=== PATIENT | female | born 1965 | race Asian ===

== ENCOUNTER 2022-05-16 08:11 | Emergency (ER) | payer OTHER ==
[~2022-05-16] VITALS: Ht 167.6 cm; Wt 62.7 kg
[2022-05-16] MEDS ORDERED: LOSA-382 PO ×2 (08:29→10:54)
[2022-05-16] MEDS ORDERED: AMLO2.5T96 PO (08:29)
[2022-05-16] MEDS ORDERED: ONDANSETRON HCL 4 MG TABLET PO ONE (08:45)
[2022-05-16] MEDS ORDERED: ACETAMINOPHEN/CODEINE 300-30 MG TABLET PO ONE (08:45)
[2022-05-16 09:06] LABS: BASOPHILS % (AUTO) 0.4 % (0.0-2.0); EOSINOPHILS % (AUTO) 2.9 % (1.0-6.0); HEMATOCRIT 41.5 % (36-46); HEMOGLOBIN 13.9 g/dL (12.0-16.0); LYMPHOCYTES # (AUTO) 1.2 K/uL (1.0-4.8); LYMPHOCYTES % (AUTO) 12.6 % (22.0-44.0); MEAN CORPUSCULAR HEMOGLOBIN 27.5 pg (26.0-34.0); MEAN CORPUSCULAR HGB CONC 33.4 G/dL (31.0-37.0); MEAN CORPUSCULAR VOLUME 82 fL (80-100); MONOCYTES # (AUTO) 0.6 K/uL (0.1-1.0); MONOCYTES % (AUTO) 6.5 % (2.0-9.0); NEUTROPHILS # (AUTO) 7.5 K/uL (1.8-7.7); NEUTROPHILS % (AUTO) 77.6 % (40.0-70.0); PLATELET COUNT (AUTO) 283 K/uL (150-450); RED BLOOD CELL COUNT(AUTO) 5.04 MIL/uL (4.00-5.20); RED CELL DISTRIBUTION WIDTH 12.8 % (11.5-14.5)
[2022-05-16 09:10] LABS: COVID AG,FIA SOURCE NASAL SWAB
[2022-05-16 09:21] LABS: CHLORIDE 100 mmol/L (98-107); POTASSIUM 3.8 mmol/L (3.5-5.1); SODIUM SERUM 135 mmol/L (136-145)
[2022-05-16 09:22] LABS: ANION GAP 7 mmol/L (8-16); CARBON DIOXIDE 28 mmol/L (22-29); CREATININE 0.78 mg/dL (0.60-1.30); GLUCOSE,RANDOM 142 mg/dL (70-110); UREA NITROGEN, BLOOD 10 mg/dL (7-18)
[2022-05-16 09:23] LABS: GLOMERULAR FILTR. RATE CALC > 60 mL/min (>60)
[2022-05-16 09:28] LABS: ALANINE AMINOTRANSFERASE 42 U/L (12-78); ALBUMIN 3.8 g/dL (3.4-5.0); ALKALINE PHOSPHATASE 97 U/L (46-116); ASPARTATE AMINOTRANSFERASE 37 U/L (15-37); BILIRUBIN,TOTAL 0.4 mg/dL (0.1-1.0); LIPASE 183 U/L (73-393); TOTAL PROTEIN, SERUM 8.6 g/dL (6.4-8.2)
[2022-05-16 09:29] LABS: LACTIC ACID 1.4 mmol/L (0.4-2.0)
[2022-05-16 09:31] LABS: B-TYPE NATRIURETIC PEPTIDE < 5 pg/mL (0-100)
[2022-05-16 09:36] LABS: APPEARANCE,URINE CLEAR (CLEAR); BILIRUBIN,URINE NEGATIVE (NEGATIVE); GLUCOSE, URINE (UA) NEGATIVE (NEGATIVE); KETONES,URINE NEGATIVE (NEGATIVE); LEUKOCYTE ESTERASE ,URINE NEGATIVE (NEGATIVE); NITRATE,URINE NEGATIVE (NEGATIVE); OCCULT BLOOD,URINE NEGATIVE (NEGATIVE); PROTEIN,URINE NEGATIVE (NEGATIVE); SPECIFIC GRAVITIY, URINE 1.006 (1.003-1.030); UROBILINOGEN,URINE <=1.0 mg/dL (<=1.0)
[2022-05-16 09:51] LABS: BACTERIA,URINE None Seen /HPF (None Seen); RBC,URINE None Seen /HPF (0-2); SQUAMOUS EPITHELIAL CELL,UR None Seen /LPF (None Seen); WBC,URINE None Seen /HPF (0-5)
[2022-05-16 10:37] VITALS: BP 129/72
[2022-05-16] MEDS ORDERED: OMEP20 PO (10:54)
[2022-05-16] MEDS ORDERED: ACET-2080 PO (10:54)
[2022-05-16] MEDS ORDERED: HYDR59LO7 TP (10:54)
[2022-05-16] MEDS ORDERED: TRIA15CR49 TP (10:55)
== END 2022-05-16 11:14 | disposition home or self-care (01) ==
LOC: EMS 08:18
DX: R53.1 Weakness (principal); L20.9 Atopic dermatitis, unspecified; L30.9 Dermatitis, unspecified; I10 Essential (primary) hypertension; Z20.822 Contact with and (suspected) exposure to COVID-19
CPT/HCPCS: 99285; 71045; 87426; 80053; 81001; 83605; 83690; 83880; 84484; 85025; 36415; 93005; Q0162

== ENCOUNTER 2022-07-01 11:53 | Emergency (ER) | payer OTHER ==
[~2022-07-01] VITALS: Ht 162.6 cm; Wt 77.3 kg
[~2022-07-01 11:53] MED LIST: ACET-2080 PO; AMLO2.5T96 PO; HYDR59LO7 TP; LOSA-382 PO; OMEP20 PO; TRIA15CR49 TP
[2022-07-01 12:02] VITALS: BP 168/80
[2022-07-01] MEDS ORDERED: NAPR-1193 PO (12:05)
[2022-07-01] MEDS ORDERED: LIDOCAINE 5% TRANSDERMAL PATCH TD ONE (13:45)
[2022-07-01] MEDS ORDERED: ACETAMINOPHEN 500 MG TABLET PO ONE (13:45)
[2022-07-01] MEDS ORDERED: ACET-3385 PO (14:16)
[2022-07-01] MEDS ORDERED: LIDO700A15 TP (14:16)
== END 2022-07-01 15:03 | disposition home or self-care (01) ==
LOC: EMS 11:53
DX: R52 Pain, unspecified (principal); I10 Essential (primary) hypertension
CPT/HCPCS: 99283